=== PATIENT | male | born 1970 | race Caucasian/White ===

== ENCOUNTER 2024-04-17 14:54 | Emergency (ER) | payer BC, SELFPAY ==
[2024-04-17 14:56] VITALS: BP 152/93
[2024-04-17] MEDS: TORADOL 30 MG IM (16:22)
[2024-04-17] MEDS: ADACEL 0.5 ML IM (16:24)
--- NOTE | 2024-04-17 16:42 | ED.MUSCINJ ---
HPI-Injury
General
Chief Complaint: Musculo-Skeletal Complaint
Time Seen by Provider: 04/17/24 15:44
History of Present Illness-Injury
Initial Injury comments:
53-year-old male without significant past medical history presenting to the emergency department for right ankle pain. Patient reports he was running with his daughter prior to arrival, missed a step and fell, twisting his right ankle, scraping his
left knee. Was able to get up, however required some assistance by his daughter to get home. Denies numbness or tingling to the ankle or foot. Tetanus status unknown. Denies any additional injuries or any report of head trauma. Denies injuries
to the ankle in the past. Denies additional acute medical complaints. He did not try any medications for pain prior to arrival.
Phy Exam
Physical Exam
Physical Exam:
General: Well-appearing, no clinical signs of dehydration, nontoxic and in no acute distress
HEENT: protecting airway
Neck: appears supple
CV: Normal heart rate
Resp: No accessory muscle use, no increased work of breathing
Abd: No distention
Extremities: Obvious swelling to the right ankle, most prominent at the lateral malleoli. Moderate tenderness to the lateral malleoli. Range of motion grossly intact. Distal sensation and pulses intact. No erythema or warmth. Abrasion to the
left knee with range of motion intact, no swelling or deformity. No palpable tenderness. Mild abrasions to bilateral thenar eminences with range of motion intact, no palpable tenderness or significant laceration
Neuro: alert, no focal neurologic deficit
: deferred
Rectal: deferred
Psych: Normal affect
Skin: Intact
Injury Course
Orders/Labs/Results
Orders:
Orders
04/17/24 15:01
Ankle, Right 3 view CR [CR Ankle - Right Min 3 Views *] Urgent
Comment:
Reason For Exam: injury
04/17/24 16:05
Ketorolac [Toradol] 30 mg IM NOW STA
Tetanus/Diphth/Acelpertussis [Adacel] 0.5 ml IM .ONCE ONE
MDM/Problems Addressed
MDM/Problems Addressed:
53-year-old male presenting to the emergency department with right ankle pain after a fall while running. Vital signs are significant for mild hypertension.
On exam patient is well-appearing, no acute distress. Obvious swelling to the right ankle. No infectious findings, without warmth or erythema. No neurovascular compromise. Suspected fracture versus high ankle sprain. X-ray obtained, no fracture
or malalignment. Will administer Toradol for pain. Will place patient in an ankle boot. Will also update tetanus, scattered abrasions. Patient has his own crutches, advised continued supportive therapy and outpatient orthopedic follow-up if
symptoms are persisting. Return precautions discussed and patient verbalized understanding.
*Critical Care Note
Total Time (30-74mins, 75-104mins- exclusive of procedures): Not Applicable
ED Attending Note
-
Portions of this chart may have been created with voice recognition software.� Occasional wrong word or��sound alike� substitutions may have occurred due to the inherent limitations of voice recognition software.
Discharge Plan
Departure
Patient Disposition: Home (Routine Discharge)
Date of Disposition: 04/17/24
Time of Disposition: 16:27
Patient with high blood pressure during this ER visit?: No
Condition: Good
Discharge Problem:
High ankle sprain of right lower extremity
Instructions: How to Use Crutches, Ankle Sprain ED
Prescriptions:
New
ibuprofen 800 mg tablet
800 mg PO Q8H PRN (Reason: Pain) Qty: 20 0RF
Referrals:
John Paul Ken MD [Active] -
Activity Restrictions/Additional Instructions:
You were seen in the emergency department for ankle pain
You were found to have an ankle sprain. There was no evidence of broken bone or fracture.
Please follow-up closely with your primary care physician.
Return to the emergency department for any worsening of your symptoms, or any development of chest pain, difficulty breathing, abdominal pain with persistent vomiting and inability to tolerate food or liquid by mouth (concern for dehydration),
weakness or numbness to your extremity, headache or confusion, fever greater than 100.4, or any additional symptoms that are concerning to you.
Thank you for choosing [facility].
Interventions
Interventions:
*Risk Screen - Suicide Last Done: 04/17/24 14:56
*Neglect/Abuse Screening Last Done: 04/17/24 14:56
ED-Musculoskeletal Assessment Last Done: 04/17/24 16:03
Discharge Date and Time
Print Language: [id number]
== END 2024-04-17 16:55 | disposition home or self-care (01) ==
LOC: EMR 14:54
PROVIDERS: EMERGENCY PHYSICIAN Student in an Organized Health Care Education/Training Program; FAMILY PHYSICIAN Internal Medicine
DX: S93.401A Sprain of unspecified ligament of right ankle, initial encounter (principal); S80.212A Abrasion, left knee, initial encounter; W01.0XXA Fall on same level from slipping, tripping and stumbling without subsequent striking against object, initial encounter; R03.0 Elevated blood-pressure reading, without diagnosis of hypertension; Z23 Encounter for immunization
CPT/HCPCS: 99284; 96372; 90471; 73610; 90715